=== PATIENT | female | born 1995 | race African-American/Black ===

== ENCOUNTER 2019-09-10 12:10 | Inpatient (IN) | payer OTHER ==
[2019-09-10 13:29] VITALS: BMI 25.0
[2019-09-10] MEDS ORDERED: ELECTROLYTE-148 SOLN 500 ML IV ONE (13:44)
[2019-09-10] MEDS ORDERED: CITRIC ACID/SODIUM CITRATE 30 ML UNIT-DOSE CUP PO ONE (13:44)
[2019-09-10] MEDS ORDERED: ELECTROLYTE-148 SOLN 1,000 ML IV SCH (13:45)
--- NOTE | 2019-09-10 13:48 | HP ---
Past Medical History - Admission Chief Complaint: Repeat History of Present Illness: 24yo @ 40wks here for repeat , JOZEF 09/05/19 Desired TOLAC, but now does not want to wait further for spontanous labor. 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: Alzheimer's, CVA, Dementia, Migraine, Multiple Sclerosis, Peripheral Neuropathy, Parkinson's, Seizure, Syncope, TIA, Vertigo, Other Cardiovascular: No: AFIB, Aneurysm, Aortic Insufficiency, Aortic Stenosis, CAD, CHF, Deep Vein Thrombosis, HTN, Hyperlipdemia, CT, Mitral Insufficiency, Mitral Stenosis, Murmur, Pulmonary Hypertension, Other Pulmonary: No: Asthma, Bronchitis, Cancer, COPD, O2 Dependent, Pneumonia, Previously Intubated, Pulmonary Embolus, Pulmonary Fibrosis, Sleep Apnea, Other Gastrointestinal: No: Ascites, Cancer, Constipation, Crohn's Disease, Diverticulitis, Diverticulosis, Esophageal Varices, Gastritis, GERD, GI Bleed, Hemorrhoids, Hiatal Hernia, Inflamatory Bowel Disease, Irritable Bowel Disease, Pancreatitis, Peptic Ulcer Disease, Ulcerative Colitis, Other ...: 4 ...Para: 1 ...Term: 1 ...: 0 ...Spon : 0 ...Induced : 2 ...Multiple Gestation: 0 ...EDC by Sono: 09/05/19 Heme/Onc: Yes: Anemia Infectious Disease: No: AIDS, C-Diff, Herpes Zoster, HIV, MRSA, STD's, Tuberculosis, VREF, Other Psych: No: Addictions, Anxiety, Bipolar, Depression, Panic, Psychosis, Schizophrenia, Other Musculoskeletal: No: Bursitis, Chronic low back pain, Hemiparesis, Hemiplegia, Osteoarthritis, Paraplegia, Other Rheumatology: No: Fibromyalgia, Gout, Lupus, Rheumatoid Arthritis, Sarcoidosis, Vasculitis, Other ENT: No: Allergic Rhinitis, Sinusitis, Other Endocrine: No: [place]'s Disease, [place]'s Disease, Diabetes Insipidus, Diabetes Mellitus, Hyperparathyroidism, Hyperthyroidism, Hypothyroidism, Osteopenia, SIADH, Other Dermatology: No: Basal Cell, Cellulitis, Eczema, Melanoma, Psoriasis, Squamous Cell, Other - Past Surgical History Past Surgical History: Yes: Hx Myomectomy: No Hx Transabdominal Cerclage: No - Smoking History Smoking history: Never smoked Have you smoked in the past 12 months: No - Alcohol/Substance Use Hx Alcohol Use: No History of Substance Use: reports: None - Social History Usual Living Arrangement: Yes: With Significant Other Do you think of yourself as: Straight/Heterosexual ADL: Independent History of Recent Travel: No Home Medications - Allergies Allergies/Adverse Reactions: Allergies Allergy/AdvReac Type Severity Reaction Status Date / Time No Known Allergies Allergy Verified 10/30/13 18:03 - Home Medications Home Medications: Ambulatory Orders Vitamins (Sjr) - 1 tab PO DAILY 10/30/13 Physical Exam - Maternity Vital Signs: Vital Signs Temperature 98.3 F 09/10/19 13:18 Pulse Rate 73 09/10/19 13:18 Respiratory Rate 18 09/10/19 13:18 Blood Pressure 109/61 09/10/19 13:18 O2 Sat by Pulse Oximetry (%) Constitutional: Yes: Well Nourished, No Distress, Calm Cardiovascular: Yes: WNL, Regular Rate and Rhythm - Abdominal Exam/OB Number of Fetuses: Single Presentation: Vertex Contractions: Yes Regularity: Irregular Intensity: Unaware Category: I Accelerations: Non-Uniform Decelerations: None - Vaginal Exam/OB Vaginal Bleediing: No Amniotic Membrane Status: Intact - Physical Exam Edema: No Assessment/Plan 24yo @ 40.5wks here for Repeat Admit to L&D NPO, IVFs Ancef SCDs Risk of procedure reviewed including bleeding, infection and injury to bladder/ bowel/vessels/adnexa. All questions answered in Slovenian. Consent signed. Parviz Gramajo MD
[2019-09-10] MEDS ORDERED: ONDANSETRON 4 MG/2 ML VIAL IVPUSH PRN (14:15)
[2019-09-10] MEDS ORDERED: morphine SULFATE/PF 0.5 MG/ML (2cc Syringe - QUVA) ONE (14:22)
[2019-09-10] MEDS ORDERED: ceFAZolin SODIUM 1 GM VIAL ONE (14:43)
[2019-09-10] MEDS ORDERED: PHENYLEPHRINE HCL 10 MG/1 ML SINGLE DOSE VIAL ONE (14:45)
[2019-09-10] MEDS ORDERED: OXYTOCIN 10 UNITS/ML VIAL ONE (14:50)
[2019-09-10] MEDS ORDERED: KETOROLAC TROMETHAMINE 30 MG/1 ML VIAL ONE (14:50)
[2019-09-10] MEDS ORDERED: METHYLERGONOVINE MALEATE 0.2 MG/1 ML AMP IM PRN (15:29)
[2019-09-10] MEDS ORDERED: IBUPROFEN 800 MG/8 ML IJ IVPB PRN (15:29)
--- NOTE | 2019-09-10 15:29 | OP ---
Operative Note - Note: Operative Date: 09/10/19 Pre-Operative Diagnosis: 40 week , prior C/S, desires elective Repeat C -Section Operation: Repeat Low Transverse Findings: VFI, VIELKA, no nuchal, no meconium. Apgars 9/9. Normal placenta, normal tubes and ovaries Post-Operative Diagnosis: Same as Pre-op Surgeon: Ree Gramajo Engine Oiler: Armando Zafar Anesthesia: Spinal Estimated Blood Loss (mls): 700 Drains, Volume Out (mls): 100 (clear urine) Operative Report Dictated: Yes
[2019-09-10] MEDS: OXYTOCIN 20 UNITS in 0.9% NS 20 UNIT/1,000 ML INFUS.BAG IV SCH (15:45)
[2019-09-11] MEDS: OXYTOCIN 20 UNITS in 0.9% NS 20 UNIT/1,000 ML INFUS.BAG IV SCH (06:15)
[2019-09-11 08:44] LABS: BASO % 0.3 % (0-2.0); EOS % 0.3 % (0-4.5); HEMATOCRIT 31.1 % (32.4-45.2); HEMOGLOBIN 10.6 GM/dL (10.7-15.3); LYMPH % 9.9 % (8-40); MCH 32.3 pg (25.7-33.7); MEAN CELL VOLUME 95.1 fl (80-96); MEAN PLT VOLUME 8.7 fl (7.5-11.1); MONO % 6.5 % (3.8-10.2); PLATELET COUNT 157 K/MM3 (134-434); RBC 3.28 M/mm3 (3.60-5.2); RDW 13.3 % (11.6-15.6); WHITE BLOOD COUNT 11.1 K/mm3 (4.0-10.0)
--- NOTE | 2019-09-11 08:54 | PN ---
Post Progress Note - Subjective Subjective: Pain controlled. Gaytan in place. No flatus yet. Post Day: 1 Type of Delivery: Repeat C/S Vital Signs: Vital Signs Temperature 99 F 09/11/19 06:00 Pulse Rate 78 09/11/19 06:00 Respiratory Rate 18 09/11/19 07:00 Blood Pressure 115/60 09/11/19 06:00 O2 Sat by Pulse Oximetry (%) 100 09/10/19 16:45 Uterus: Yes: Fundus below umbilicus Incision: Yes: Dressing dry and intact, Sutures intact Abdomen/GI: Yes: Abdomen soft Lochia: Yes: Rubra Lochia, amount: Small Extremities: Yes: Calves non-tender Perineum: Yes: Intact Assessment/Plan 24yo s/p Repeat , POD#1 Routine PP care Las pending OOB, ambulate D/C gaytan D/C to home by POD#4 Parviz Gramajo MD
--- NOTE | 2019-09-11 09:16 | OP ---
DATE OF OPERATION: 09/10/2019 PREOPERATIVE DIAGNOSIS: A 40-week , prior section, desires elective repeat section. POSTOPERATIVE DIAGNOSIS: A 40-week , prior section, desires elective repeat section. PROCEDURE: Repeat low transverse section. ANESTHESIA: Spinal. INTRAVENOUS FLUIDS: Per anesthesia record. SURGEON: Ree Gramajo MD CHANNELER INSOLE: KHALIDA Horta ESTIMATED BLOOD LOSS: 700. URINE OUTPUT: Clear urine 100 mL. FINDINGS: Viable female infant, VIELKA presentation. No nuchal. No meconium. Apgars 9 and 9. Normal placenta. Normal tubes and ovaries bilaterally. COMPLICATIONS: None. CONDITION: Stable to recovery room. NATURE OF THE PROCEDURE: After the appropriate consents were signed, patient was taken to the operating room. Spinal anesthesia was administered. She was placed in supine position, and the abdomen was prepped and draped in normal sterile fashion. Sterile Ivey catheter had been inserted prior to entry into the operating room. Timeout was performed, confirming correct patient and procedure. A Pfannenstiel incision was made, carried through to the underlying layers until the fascia was nicked in the midline. The fascia was then extended laterally with scalpel and the Perez scissors. The inferior aspect of the fascia was grasped with Kristopher clamps, tented upwards and the rectus muscles dissected off bluntly and with the Perez scissors. Attention was then paid to the superior aspect which was taken down in a similar fashion. The rectus muscles were sharply in the midline with a scalpel. The rectus muscles were then manually . The peritoneum was entered sharply. Bladder blade was inserted. The vesicouterine reflection was then grasped, nicked in the midline, and then extended laterally with the Metzenbaum scissors. The bladder flap was then created digitally. The bladder blade was readjusted. The uterus was incised in a low transverse fashion. Clear amniotic fluid was noted. The infant's head was delivered with the assistance of a vacuum. One pop-off noted with 3 pulls total. The shoulders and the remaining body were delivered without difficulty. The cord was clamped and cut. The was handed off to the pediatric staff. The placenta was cleared manually. The uterus was cleared of all clot and debris. The hysterotomy was closed in a single vertical imbricating layer. The right side of the hysterotomy had to be reapproximated with a 0 Vicryl for hemostasis. Adnexa were inspected and noted to be normal. The gutters were cleared of all clot and debris. The hysterotomy was re-examined, noted to be hemostatic. The rectus muscles were closed with a 2-0 chromic. The fascia was closed with a 0 Vicryl. Skin was closed with a 4-0 Biosyn. All sponge, lap, needle counts were correct x3. The patient did receive Ancef at the start of the procedure. She was taken from the operating room to the recovery area in stable condition. MD RUKHSANA [id number]
[2019-09-11] MEDS: PRENATAL VITAMINS W/ FOLIC ACID TABLET (FP) PO SCH (09:30)
[2019-09-11] MEDS ORDERED: FLU VACC QS2019-20(6MOS UP)/PF 60 MCG/0.5 ML SYRINGE IM ONE (10:00)
[2019-09-11] MEDS ORDERED: DIPHTH,PERTUSS(ACELL),TET 0.5 ML DISP.SYRIN IM ONE (10:00)
[2019-09-11] MEDS ORDERED: FLU VACCINE QUAD 60 MCG/0.5 ML (MDV 19-20) IM ONE (10:00)
[2019-09-11] MEDS ORDERED: BISACODYL 10 MG SUPP.RECT RC PRN (15:30)
[2019-09-11] MEDS: IBUPROFEN 600 MG TABLET (FP) PO PRN (16:43)
[2019-09-12] MEDS: IBUPROFEN 600 MG TABLET (FP) PO PRN ×3 (02:34→20:09)
[2019-09-12] MEDS: SIMETHICONE 80 MG TAB.CHEW (FP) PO PRN ×2 (02:34→13:52)
--- NOTE | 2019-09-12 08:21 | PN ---
Progress Note (short form) - Note Progress Note: pod 2, has mild incisional pain , passing gas CBC, BMP 09/11/19 08:13 Last Vital Signs Temp Pulse Resp BP Pulse Ox 97.9 F 62 18 103/68 100 09/12/19 08:01 09/12/19 08:01 09/12/19 08:01 09/12/19 08:01 09/10/19 16:45 abdomen soft, no distension, no cva incision dry, clean lochia mild no calf tenderness plan ambulate , cbc in am pain management
[2019-09-12] MEDS: PRENATAL VITAMINS W/ FOLIC ACID TABLET (FP) PO SCH (10:08)
[2019-09-12] MEDS: OXYTOCIN 20 UNITS in 0.9% NS 20 UNIT/1,000 ML INFUS.BAG IV SCH (18:08)
[2019-09-12 22:28] VITALS: TEMP 98.1
[2019-09-13 08:20] LABS: BASO % 0.3 % (0-2.0); EOS % 2.1 % (0-4.5); HEMATOCRIT 29.4 % (32.4-45.2); HEMOGLOBIN 10.2 GM/dL (10.7-15.3); LYMPH % 22.5 % (8-40); MCH 32.9 pg (25.7-33.7); MCHC 34.6 g/dl (32.0-36.0); MEAN CELL VOLUME 95.2 fl (80-96); MEAN PLT VOLUME 8.5 fl (7.5-11.1); MONO % 9.3 % (3.8-10.2); NEUT % 65.8 % (42.8-82.8); PLATELET COUNT 153 K/MM3 (134-434); RBC 3.08 M/mm3 (3.60-5.2); RDW 13.5 % (11.6-15.6)
[2019-09-13] MEDS: PRENATAL VITAMINS W/ FOLIC ACID TABLET (FP) PO SCH (10:12)
[2019-09-13 11:18] VITALS: BP 120/78; PULSE 62
--- NOTE | 2019-09-13 11:55 | PN ---
Post Progress Note - Subjective Subjective: Pain controlled. Ambulating. No fevers/chills. Post Day: 3 Type of Delivery: Repeat C/S Vital Signs: Vital Signs Temperature 98.1 F 09/13/19 10:00 Pulse Rate 62 09/13/19 10:00 Respiratory Rate 18 09/13/19 10:00 Blood Pressure 120/78 09/13/19 10:00 O2 Sat by Pulse Oximetry (%) 100 09/10/19 16:45 Uterus: Yes: Fundus below umbilicus Incision: Yes: Dressing dry and intact, Sutures intact Abdomen/GI: Yes: Abdomen soft, Passing flatus, Tolerating PO Lochia: Yes: Rubra Lochia, amount: Small Extremities: Yes: Calves non-tender Perineum: Yes: Intact Activity: Ambulating - Labs Labs: CBC WBC 7.0 K/mm3 (4.0-10.0) 09/13/19 07:39 RBC 3.08 M/mm3 (3.60-5.2) L 09/13/19 07:39 Hgb 10.2 GM/dL (10.7-15.3) L 09/13/19 07:39 Hct 29.4 % (32.4-45.2) L 09/13/19 07:39 MCV 95.2 fl (80-96) 09/13/19 07:39 MCH 32.9 pg (25.7-33.7) 09/13/19 07:39 MCHC 34.6 g/dl (32.0-36.0) 09/13/19 07:39 RDW 13.5 % (11.6-15.6) 09/13/19 07:39 Plt Count 153 K/MM3 (134-434) 09/13/19 07:39 MPV 8.5 fl (7.5-11.1) 09/13/19 07:39 Absolute Neuts (auto) 4.6 K/mm3 (1.5-8.0) 09/13/19 07:39 Neutrophils % 65.8 % (42.8-82.8) D 09/13/19 07:39 Lymphocytes % 22.5 % (8-40) D 09/13/19 07:39 Monocytes % 9.3 % (3.8-10.2) 09/13/19 07:39 Eosinophils % 2.1 % (0-4.5) D 09/13/19 07:39 Basophils % 0.3 % (0-2.0) 09/13/19 07:39 Nucleated RBC % 0 % (0-0) 09/13/19 07:39 Assessment/Plan 24yo s/p RLTCS, POD#3 Routine PP care PO pain control Labs reviewed Anticipate d/c to home Parviz Gramajo MD
--- NOTE | 2019-09-13 12:32 | DS ---
Physical Examination Vital Signs: Vital Signs Temperature 98.1 F 09/13/19 10:00 Pulse Rate 62 09/13/19 10:00 Respiratory Rate 18 09/13/19 10:00 Blood Pressure 120/78 09/13/19 10:00 O2 Sat by Pulse Oximetry (%) 100 09/10/19 16:45 Constitutional: Yes: Well Nourished, No Distress, Calm Eyes: Yes: WNL, Conjunctiva Clear, EOM Intact HENT: Yes: WNL, Atraumatic, Normocephalic Neck: Yes: WNL, Supple, Trachea Midline Cardiovascular: Yes: WNL, Regular Rate and Rhythm Respiratory: Yes: WNL, Regular, CTA Bilaterally Gastrointestinal: Yes: WNL, Normal Bowel Sounds Musculoskeletal: Yes: WNL Extremities: Yes: WNL Edema: No Integumentary: Yes: WNL Neurological: Yes: WNL, Alert, Oriented ...Motor Strength: WNL Psychiatric: Yes: WNL Labs: CBC, BMP 09/13/19 07:39 Discharge Summary Problems reviewed: Yes Reason For Visit: REPEAT Procedures: Principal: Hospital Course: Patient presented for scheduled repeat She had an uncomplicated repeat C/S She met all postoperative milestones She was discharged home on POD#3 M. MD Rox Condition: Stable - Instructions Diet, Activity, Other Instructions: Regular Diet Follow up in 4-6 weeks for your visit Referrals: Ree Gramajo MD [Staff Physician] - Disposition: HOME - Home Medications Comprehensive Discharge Medication List: Ambulatory Orders Vitamins (Sjr) - 1 tab PO DAILY 10/30/13 Ibuprofen 600 mg PO Q6H PRN #30 tablet 09/12/19 Oxycodone HCl/Acetaminophen [Percocet 5-325 mg Tablet -] 1 - 2 tab PO Q6H PRN # 20 tab MDD 4 09/12/19
--- NOTE | 2019-09-16 17:37 | PATH ---
Surgical Pathology Report Patient Name: MELISSA MERCADO Med. Rec. #: [id number] /Age/Gender: 1995 (Age: 24) / F Account: [id number] Location: [facility] OBS/PIT RECORDER Taken: 09/10/2019 Received: 09/11/2019 Reported: 09/16/2019 Physicians: Ree Gramajo Specimen(s) Received PLACENTA Clinical History at 40 weeks 5 days in 2012 Final Diagnosis PLACENTA: THIRD TRIMESTER PLACENTA. TRIVASCULAR CORD. MEMBRANES WITH NO DIAGNOSTIC ABNORMALITIES. Electronically Signed Heather Archer M.D. Gross Description The specimen is received fresh labeled placenta and is a 498 gram, 17.0 x 15.5 x 2.5 cm. placenta with attached membranes and umbilical cord. The attached membranes are renteria, translucent with focal opacities and insert marginally. The umbilical cord measures 32 cm. in length and averages 1.2 cm. in diameter. The cord inserts eccentrically, 5.5 cm. to the nearest margin. No true knots or strictures are identified. Cut surface of the umbilical cord reveals 3 vessels. The surface is ruiz blue with abundant fibrin deposition and appropriate caliber vessels. The maternal surface is red-brown with focal defects. Sectioning reveals red-brown, spongy parenchyma. No lesions are identified. Farm Equipment Engineer sections are submitted in three cassettes as follows: 1- membrane rolls and umbilical cord; 2-3- full thickness sections of placenta. /09/15/2019 [facility]09/15/2019
== END 2019-09-13 13:30 | disposition home or self-care (01) | DRG 540 ==
LOC: JLDR 12:10 → J3W 18:01
PROVIDERS: ADMIT Obstetrics & Gynecology; ATTEND Obstetrics & Gynecology
PROC: 10D00Z1 Extraction of Products of Conception, Low, Open Approach (ICD-10-PCS; principal; 2019-09-10)
DX: O34.211 Maternal care for low transverse scar from previous cesarean delivery (principal); N85.8 Other specified noninflammatory disorders of uterus; Z3A.40 40 weeks gestation of pregnancy; Z37.0 Single live birth
CPT/HCPCS: 36415; 85025; 88307-TC; 90686; 90715